=== PATIENT | female | born 1955 | race Caucasian/White ===

== ENCOUNTER 2024-03-25 14:48 | Outpatient (CLI) | payer MEDICARE, SELFPAY ==
--- NOTE | 2024-03-25 15:00 | US_ITS ---
Patient: TYRON BAUER Facility:?[facility] RIS Patient ID:?[id number] Site Patient ID:?[id number]. Site :?[id number] Study:?US-OB Pelvis TA/TV Pelvic US-03/25/2024 3:53:57 PM Ordering Physician:Viola Ortega Final Report: INDICATION: Post menopausal Bleeding COMPARISON: none TECHNIQUE: 2D batista scale and color Doppler images were acquired of the pelvis using a transabdominal and transvaginal approach. FINDINGS: Sonographic images demonstrate a normal size and smooth outer contour of the uterus. Uterus measures 5.0 cm in length by 2.4 cm in AP diameter by 3.8 cm in transverse dimension. The myometrium has a heterogeneous echotexture. The endometrial lining appears thickened and heterogeneous and measures 12 mm in composite thickness. The right ovary measures 1.2 x 0.6 x 0.5 cm in size and the left ovary measures 2.3 x 1.5 x 2.1 cm. The ovaries demonstrate normal arterial and venous blood flow on color Doppler analysis. There are no suspicious fluid collections within the cul-de-sac. Simple left ovarian cyst measures 17 x 16 x 19 millimeters. IMPRESSION: Thickened and heterogeneous endometrium measuring 12 millimeters. Dictated by Caden Mancilla MD @ 03/26/2024 10:00:11 AM Signed by:?Caden Mancilla MD @03/26/2024 10:00:11 AM (Electronic Signature)
== END 2024-03-25 14:49 | disposition home or self-care (01) ==
LOC: US 14:48
PROVIDERS: PCP Family Medicine; Visit Provider Obstetrics & Gynecology
DX: N95.0 Postmenopausal bleeding (principal); R93.89 Abnormal findings on diagnostic imaging of other specified body structures
CPT/HCPCS: 76830; 76856; 93976

== ENCOUNTER 2024-04-02 11:02 | Day surgery (SDC) | payer MEDICARE, SELFPAY ==
--- OUTSIDE RECORDS SUMMARY | 2024-04-02 11:06 | XMS_ITS | Clinical Summary ---
Author Name Unknown Organization [facility] [facility] Address [place], [place] [address] Care Team Providers Care Smoking Tobacco Cutter Operator Name Role Phone Jose Childs MD Primary Care Provider [phone] Mary Schrader MD Unavailable [phone] Laura Hernadez NP Unavailable Jeremiah Ordoñez Unavailable [phone] Allergies Active Allergy Reactions Criticality Noted Date Comments Lisinopril Cough 07/26/2021 Medications Medication Sig Dispensed Refills Start Date End Date Status fexofenadine (SHARMAINE) 180 mg tablet Take 180 mg by mouth once daily if needed for Allergy Symptoms. Do not crush or chew. 0 03/12/2023 Active zoledronic acid in mannitol & water (RECLAST) 5 mg/100 mL infusion Inject 5 mg (100 mL) intravenous one time for 1 dose. Every October 100 mL 03/12/2023 Active VITAMIN B COMPLEX ORAL Take by mouth. Active amLODIPine (NORVASC) 2.5 mg tabletIndications:H TN (hypertension) Take 1 Tablet (2.5 mg) by mouth once daily. 90 Tablet 3 02/07/2024 Active losartan (COZAAR) 100 mg tabletIndications:H igh cholesterol Take 1 Tablet (100 mg) by mouth once daily. 90 Tablet 3 02/07/2024 Active sertraline (ZOLOFT) 100 mg tabletIndications:D epression, major, in remission (HC) Take 0.5 Tablets (50 mg) by mouth every morning. 45 Tablet 3 02/07/2024 Active cholecalciferol (Vitamin D-3) 2,000 unit capsuleIndications: Vitamin D deficiency Take 1 Capsule (2,000 units) by mouth once daily. 90 Capsule 3 02/07/2024 Active Active Problems Problem Noted Date Diagnosed Date High cholesterol 03/12/2023 Vitamin D deficiency 03/12/2023 Depression, major, in remission 03/12/2023 Osteoporosis 03/12/2023 Primary cancer of right breast 03/12/2023 HTN (hypertension) 03/12/2023 Adjustment disorder with anxious mood 07/21/2021 Benign essential HTN 07/21/2021 Malignant neoplasm of upper- outer quadrant of right breast in female, estrogen receptor positive 07/21/2021 Hx of colonoscopy 04/13/2021 Overview: Normal 10/04/16, repeat 10 yrs - per pt, Dr Bedolla did not rec another cscope due to after effects Encounters Date Type Department Care Team Description 04/01/2024 10:00 AM CDT Preop Visit [facility] [address] [place] [address] Dashawn Tang MD Pre-Op Exam (DOS: 04/02/24, Dr. Miller, [facility], ) 04/01/2024 Travel 03/25/2024 Orders Only [facility] Scanner 1 scan: (1-Ord) [facility], OB PELVIS TA/TV, 03/25/2024 03/18/2024 Lab Requisition [facility] [phone] Viola Miller MD 03/12/2024 1:00 PM CDT Office Visit [facility] [address] [place] [phone] Mary Schrader MD Follow Up (Malignant neoplasm of right female breast, unspecified estrogen receptor status, unspecified site of breast (HC)//) 03/12/2024 Travel 03/09/2024 10:17 AM CDT - 03/09/2024 11:59 PM CDT Hospital Encounter [facility] [address] [facility] [place] [address] Laura Hernadez L, STRUCTURES MECHANIC Anemia, unspecified type 03/09/2024 9:52 AM CDT - 03/09/2024 10:16 AM CDT Hospital Encounter [facility] [address] [facility] [place] [address] Laura Hernadez L, STRUCTURES MECHANIC Malignant neoplasm of right female breast, unspecified estrogen receptor status, unspecified site of breast (HC) 03/09/2024 Travel 02/07/2024 9:30 AM CDT Office Visit [facility] [address] [place] [phone] Jose Childs MD Medicare ANNUAL (subsequent) Visit 02/07/2024 Travel from Last 3 Months Immunizations Name Administration Dates Next Due COVID-19 Vaccine Spikevax (M oderna 50mcg/0.5mL) 12YO+ [id number] Formula PF 09/25/2023 Hepatitis A (Adult) 02/21/2011, 1,08/04/2010,07/26 Influenza Virus, Unspecified 09/07/2022, 08/25/2021,09/03/2019,09/11,07/22/2013,07/11/2012,09/11/2010 ,08/31/2010,07/25/2009,07/13/2009,07/26,07/28/2008,09/03/2007, 6,08/28/2006,09/26/2005 Influenza, High-dose Quadriv alent Inactivated 08/17/2023 MMR 04/09/2014 Pneumococcal Conj 20-valent (Prevnar 20) 03/12/2023 Pneumococcal Poly,23-Valent (Pneumovax) 07/21/2021 RSV, Bivalent Vaccine Recons tituted (Abrysvo 120MCG/0.5mL) 09/17/2023 Tdap 05/25/2014,11/26/2012 Zoster (Shingrix-RZV, recombinant) 05/26/2020, Zoster, Unspecified Formulation 08/25/2019 Family History Medical History Relation Name Comments Cancer-colon Father Stroke Mother Cancer-breast Other niece Cancer-breast Sister 1 Cancer-breast Sister 2 Relation Name Status Comments Brother Father Mother Other Alive Sister 1 Alive Sister 2 Alive Social History Tobacco Use Types Packs/Day Years Used Date Smoking Tobacco: Former Cigarettes Q uit: 1977 Smokeless Tobacco: Never Tobacco Cessation:Counseling Given: Not Answered Alcohol Use Standard Drinks/Week Comments Yes 5 (1 standard drink = 0.6 oz pure alcohol) 5 drinks of wine a week since [facility]ci PHQ-2 Answer Date Recorded PHQ-2 TOTAL SCORE 0 02/07/2024 Social Connections Answer Date Recorded Frequency of Communication with Friends and Fami ly Not on file 03/12/2024 Financial Resource Strain Answer Date R ecorded Difficulty of Paying Living Expenses 3 03/12/2023 Difficulty of Paying Living Expenses Not on file 03/12/2023 Food Insecurity Answer Date Recorded Worried About Running Out of Food in the Last Ye ar 1 03/12/2023 Transportation Needs Answer Date Record ed Lack of Transportation (Medical) 1 03/12/2023 Sex and Gender Information Value Date Recorded Sex Assigned at Not on file Gender Identity Not on file Sexual Orientation Not on file Obstetrics History Last Filed Vital Signs Vital Sign Reading Time Taken Comments Blood Pressure 138/82 04/01/2024 10:07 AM CDT Pulse 72 04/01/2024 10:07 AM CDT Temperature 36.7 ??C (98 ??F) 04/01/2024 10:07 AM CDT Respiratory Rate 14 03/12/2024 12:52 PM CDT Oxygen Saturation 98% 03/12/2024 12:52 PM CDT Inhaled Oxygen Concentration - - Weight 71.2 kg (157 lb) 04/01/2024 10:07 AM CDT with shoes Height 165.1 cm (5' 5) 04/01/2024 10:07 AM CDT with shoes Body Mass Index 26.13 04/01/2024 10:07 AM CDT Plan of Treatment Upcoming Encounters Date Type Department Care Team (Late st Contact Info) Description 09/10/2024 1:30 PM CDT Appointment [facility] [address] [place] [address] 09/15/2024 1:45 PM CDT Office Visit [facility] [address] [place] [address] Laura Hernadez, STRUCTURES MECHANIC [address] [facility] [place] [address] Health Maintenance Due Date Last Done Comments DEXA/DXA scan for age 65+ 2022 COVID-19 vaccine series (2022- season) 2023 09/25/2023, 08/16/2022, 05/14/2022, Additional history exists Tetanus booster 05/25/2024 05/25/2014, 11/26/2012 Influenza for age 65+ 07/26/2024 08/17/2023 , 09/07/2022, 08/25/2021, Additional history exists Depression screening for age 12+ 02/06/2025 02/07/2024, 03/12/2023 Medicare Wellness for age 65+ 02/07/2025 02/07/2024 Mammogram for age 45-75 03/09/2025 03/09/2024, 04/17 BMI (ht and wt on same day) for age 18+ 04/01/2025 04/01/2024, 02/07/2024, 10/31/2023, Additional history exists Colonoscopy through age 75 02/01/2027 P ostponed from 2002 (Other) Lipids for age 45-75 02/06/2029 02/07/2024 Tdap Completed 05/25/2014, 11/26/2012 Zoster (shingles) series for age 50+ Completed 05/26/2020, 03/24/2020 Pneumococcal series for age 65+ Completed 03/12/2023, 07/21/2021 Hepatitis C screening for age 18-79 Completed 02/07/2024 Procedures Procedure Name Priority Date/Time Associated Diagnosis Comments POTASSIUM,ISTAT Routine 04/01/2024 11:10 AM CDT Pre-op exam HTN (hypertension) SCAN-ULTRASOUND REPORT 03/25/2024 12:00 AM CDT LAB TRACKING EVENT Routine 03/17/2024 3: 30 PM CDT PATH TISSUE EXAM Routine 03/17/2024 3:30 PM CDT CBC WITH AUTO DIFFERENTIAL Timed 03/09/2024 10:24 AM CDT Anemia, unspecified type VITAMIN B12 Today 03/09/2024 10:24 AM CDT Anemia, unspecified type CBC WITH AUTO DIFFERENTIAL Today 03/09/2024 10:24 AM CDT Anemia, unspecified type XR MAMMO SOLOMON BILAT SCREEN Routine 03/09/2024 10:11 AM CDT Malignant neoplasm of right female breast, unspecified estrogen receptor status, unspecified site of breast (HC) CBC WITH AUTO DIFFERENTIAL Routine 02/07/2024 10:12 AM CDT Primary cancer of right breast (HC) CBC WITH AUTO DIFFERENTIAL Routine 02/07/2024 10:12 AM CDT Primary cancer of right breast (HC) VITAMIN B12 Routine 02/07/2024 10:12 AM CDT B12 deficiency HEMOGLOBIN A1C SCREENING Routine 02/07/2024 10:12 AM CDT Elevated glucose COMP METABOLIC PANEL Routine 02/07/2024 10:12 AM CDT HTN (hypertension) ANTI HCV Routine 02/07/2024 10:12 AM CDT Need for hepatitis C screening test LIPID PANEL W REFLEX MEASURED LDL Routine 02/07/2024 10:12 AM CDT Screening for cardiovascular condition from Last 3 Months Results * POTASSIUM,ISTAT (04/01/2024 11:10 AM CDT) POTASSIUM, POCT 4.0 3.5 - 5.0 mmol/L 04/01/2024 11:14 AM CDT [facility] Blood BLOOD SPECIMEN / Unknown 04/01/2024 11:10 AM CDT 04/01/2024 11:14 AM CDT Dashawn Tang MD CHEMISTRY Performing Organization Address City/[facility]/ZIP Co de Phone Number [facility] [address] [place] [address] * SCAN-ULTRASOUND REPORT (03/25/2024 12:00 AM CDT) Anatomical Region Laterality Modality Other Scanner OTHER * LAB TRACKING EVENT (03/17/2024 3:30 PM CDT) Other (Other) Client Collect / Unknown 03/17/2024 3:30 PM CDT 03/18/2024 3:47 PM CDT Viola Miller MD LAB BILL ONLY Performing Organization Address [facility] Co de Phone Number [facility] [address] [place] [address] * PATH TISSUE EXAM (03/17/2024 3:30 PM CDT) Case Report Pathology Report ?Case: [id number] ? Authorizing Provider: ??Viola Miller MD ?? Collected: ? 03/17/2024 1530 ? Ordering Location: ? [facility] ?Received: ?03/18/2024 1621 ? Pathologist: ? Martha Mike MD ? Specimen: ?Endometrial Biopsy ? 03/20/2024 11:54 AM [facility] Final Diagnosis A) ENDOMETRIUM, BIOPSY: 1. Scant atrophic endometrium 2. Negative for hyperplasia, atypia, and malignancy in this sample 03/20/2024 11:54 AM [facility] Comment A) The specimen is scant. However, atrophic endometrium typically yields a scant specimen. If the clinical impression does not correlate with the histologic finding of endometrial atrophy, further endometrial tissue sampling is recommended as clinically indicated. 03/20/2024 11:54 AM [facility] Clinical Information Occasional dark brown discharge/post menopausal bleeding. Pelvic ultrasound pending. A history of stage Ia invasive ductal carcinoma of the right, ER/SC positive in 2020. Tamoxifen in 202203/20/2024 11:54 AM [facility] Gross Description A) Received in formalin, labeled with the patient's name and date of , is a 1.6 x 0.8 x 0.3 cm aggregate of cloudy mucus. ??The specimen is entirely submitted in 1 cassette. EKW 03/18/2024 03/20/2024 11:54 AM [facility] Microscopic Description The final diagnosis is based on microscopic examination of appropriate sections of all specimens. 03/20/2024 11:54 AM [facility] Additional Information Interpreted at [facility] [employer] [facility] Laboratory - [address], [place] [address] 03/20/2024 11:[address] [facility] Other (Endometrial Biopsy) 03/17/2024 3:30 PM CDT 03/18/2024 4:21 PM CDT Viola Miller MD PATHOLOGY/CYTOLOG Y [facility] [address] [place] [address], * CBC WITH AUTO DIFFERENTIAL (03/09/2024 10:24 AM CDT) Only the most recent of2 resultswithin the time period is included. WHITE BLOOD COUNT 5.2 4.5 - 11.0 thou/cu mm 03/09/2024 10:29 AM [facility] RED BLOOD COUNT 4.07 4.00 - 5.20 mil/cu mm 03/09/2024 10:29 AM [facility] HEMOGLOBIN 12.1 12.0 - 16.0 g/dL 03/09/2024 10:29 AM [facility] HEMATOCRIT 37.1 33.0 - 51.0 % 03/09/2024 10:29 AM [facility] MCV 91 80 - 100 fL 03/09/2024 10:29 AM [facility] MCH 29.7 26.0 - 34.0 pg 03/09/2024 10:29 AM [facility] MCHC 32.6 32.0 - 36.0 g/dL 03/09/2024 10:29 AM [facility] RDW 12.9 11.5 - 15.5 % 03/09/2024 10:29 AM [facility] PLATELET COUNT 248 140 - 440 thou/cu mm 03/09/2024 10:29 AM [facility] MPV 9.5 6.5 - 11.0 fL 03/09/2024 10:29 AM [facility] % NEUT 64.9 % 03/09/2024 10:29 AM [facility] % LYMPH 23.5 % 03/09/2024 10:29 AM [facility] % MONO 9.1 % 03/09/2024 10:29 AM [facility] % EOS 1.9 % 03/09/2024 10:29 AM CDT [facility] % BASO 0.6 % 03/09/2024 10:29 AM CDT [facility] ABSOLUTE NEUTROPHILS 3.3 1.7 - 7.0 thou/cu mm 03/09/2024 10:29 AM CDT [facility] ABSOLUTE LYMPHOCYTES 1.2 0.9 - 2.9 thou/cu mm 03/09/2024 10:29 AM CDT [facility] ABSOLUTE MONOCYTES 0.5 <0.9 thou/cu mm 03/09/2024 10:29 AM CDT [facility] ABSOLUTE EOSINOPHILS 0.1 <0.5 thou/cu mm 03/09/2024 10:29 AM CDT [facility] ABSOLUTE BASOPHILS 0.0 <0.3 thou/cu mm 03/09/2024 10:29 AM CDT [facility] Blood BLOOD SPECIMEN / Unknown Venipuncture / Unknown 03/09/2024 10:24 AM CDT 03/09/2024 10:24 AM CDT Narrative [facility] - 03/09/2024 10:29 AM CDT This procedure was originally ordered at [facility]. This procedure was originally ordered at [facility]. Laura Hernadez NP HEMATOLOGY [facility] [address] [place] [address] * VITAMIN B12 (03/09/2024 10:24 AM CDT) Only the most recent of2 resultswithin the time period is included. VITAMIN B12 259 232 - 1,245 pg/mL 03/09/2024 10:20 PM CDT [facility] Blood BLOOD SPECIMEN / Unknown Venipuncture / Unknown 03/09/2024 10:24 AM CDT 03/09/2024 10:24 AM CDT Narrative [facility] - 03/09/2024 10:20 PM CDT Biotin supplements may cause clinically significant interference for this test assay. ??If interference is suspected, it is strongly recommended that biotin is discontinued for at least one week prior to retesting. Laura Hernadez NP CHEMISTRY [facility] [address] [place] [address], [place] * XR MAMMO SOLOMON BILAT SCREEN (03/09/2024 10:11 AM CDT) Anatomical Region Laterality Modality BREASTS, Breast Left, Breast Right Bilateral Mammography Impressions 03/10/2024 10:39 AM CDT ??There is no radiographic evidence for malignancy. ??Recommend annual mammograms. MAMMOGRAM ASSESSMENT: ??ACR 2 Benign PATIENTS: You will also receive a letter with your examination results in an easy to read format. ??If you have questions about your results, please contact your referring provider. Narrative 03/10/2024 10:39 AM CDT For Patients: As a result of the Century Cures Act, medical imaging exams and procedure reports are released immediately into your electronic medical record. You may view this report before your referring provider. If you have questions, please contact your health care provider. XR MAMMO SOLOMON BILAT SCREEN [[id number]] CLINICAL HISTORY: ??This is an asymptomatic 69 y.o. patient. INDICATION FOR EXAM: Mammogram Screening. TECHNIQUE: CC & MLO views were obtained. ??This study was evaluated with the assistance of Computer-Aided Detection. Breast Tomosynthesis was used in interpretation. COMPARISON FILMS: Yes 04/16/23 ? FINDINGS: ??The breasts are heterogeneously dense, which may obscure small masses. ??No suspicious masses or microcalcifications. ??There are post treatment changes of right breast. Laura Hernadez NP MAMMO * HEMOGLOBIN A1C SCREENING (02/07/2024 10:12 AM CDT) HEMOGLOBIN A1C SCREENING 5.1 <=6.4 % 02/07/2024 11:06 AM CDT [facility] Blood BLOOD SPECIMEN / Unknown Venipuncture / Unknown 02/07/2024 10:12 AM CDT 02/07/2024 10:12 AM [facility] - 02/07/2024 11:06 AM CDT ? (<5.7%) ?Normal ? (5.7% to 6.4%) ? Indicates prediabetes ? (>=6.5%) ? Confirms diabetes Falsely low levels may be seen with: Recent Transfusion, Recent Significant Blood Loss, Hemolytic Diseases, or Falsely elevated levels may be seen with: Untreated Anemias, Splenectomy Jose Childs MD CHEMISTRY [facility] [address] [place] [address] * (ABNORMAL) LIPID PANEL W REFLEX MEASURED LDL [[id number]] (02/07/2024 10:12 AM CDT) CHOLESTEROL,TOTAL 237(H) 100 - 199 mg/dL 02/07/2024 11:32 AM [facility] Comment: Cholesterol, Total Reference Ranges Desirable <200 mg/dL Borderline 200-239 mg/dL High >=240 mg/dL TRIGLYCERIDES 117 <150 mg/dL 02/07/2024 11:32 AM [facility] HDL CHOLESTEROL 78 >40 mg/dL 11:32 AM [facility] NON-HDL CHOLESTEROL 159(H) <145 mg/dl 02/07/2024 11:32 AM [facility] CHOL/HDL RATIO 3.04 <4.50 02/07/2024 11:32 AM [facility] LDL CHOLESTEROL 136(H) <=130 mg/dL 02/07/2024 11:32 AM [facility] VLDL CHOLESTEROL 23 <=30 mg/dL 02/07/2024 11:32 AM [facility] PROVIDER ORDERED STATUS RANDOM 02/07/2024 11:32 AM [facility] Blood BLOOD SPECIMEN / Unknown Venipuncture / Unknown 02/07/2024 10:12 AM CDT 02/07/2024 10:12 AM CDT Jose Childs MD CHEMISTRY Performing Organization Address City/[facility]/ZIP Co de Phone Number [facility] [address] [place] [address] * ANTI HCV [[id number]] (02/07/2024 10:12 AM CDT) [facility] HEPATITIS C ANTIBODY Non-Reacti ve Non-React felicia 02/07/2024 9:28 PM CDT [facility] Comment:Please note, per www .CDC.gov: If a patient is known to be at high risk of HCV infection, or is symptomatic, and the physician's suspicion of HCV infection is high, HCV RNA testing is often employed and is of diagnostic value, even after an initial negative anti-HCV test result. Blood BLOOD SPECIMEN / Unknown Venipuncture / Unknown 02/07/2024 10:12 AM CDT 02/07/2024 10:12 AM CDT Jose Childs MD SEND OUTS Performing Organization Address City/[facility]/ZIP Co de Phone Number [facility] [address] [place] [address], * (ABNORMAL) COMP METABOLIC PANEL (02/07/2024 10:12 AM CDT) [facility] SODIUM 140 136 - 145 mmol/L 02/07/2024 11:32 AM CDT [facility] POTASSIUM 4.0 3.5 - 5.1 mmol/L 02/07/2024 11:32 AM T [facility] CHLORIDE 105 98 - 107 mmol/L 02/07/2024 11:32 AM T [facility] CO2,TOTAL 24 22 - 29 mmol/L 02/07/2024 11:32 AM T [facility] ANION GAP 11 5 - 18 02/07/2024 11:32 AM T [facility] GLUCOSE 76 70 - 99 mg/dL 02/07/2024 11:32 AM [facility] CALCIUM 9.3 8.8 - 10.2 mg/dL 02/07/2024 11:32 AM [facility] BUN 11 8 - 23 mg/dL 02/07/2024 11:32 AM [facility] CREATININE 0.54 0.50 - 0.90 mg/dL 02/07/2024 11:32 AM [facility] BUN/CREAT RATIO 20 10 - 20 11:32 AM [facility] eGFR >90 >90 mL/min/1.7 3m2 02/07/2024 11:32 AM [facility] Comment:As of 2022, eG FR is calculated by the CKD-EPI creatinine equation without race adjustment. ??eGFR can be influenced by muscle mass, exercise, and diet. ??The reported eGFR is an estimation only and is only applicable if the renal function is stable. ALBUMIN 4.4 4.0 - 4.9 g/dL 02/07/2024 11:32 AM [facility] PROTEIN,TOTAL 7.2 6.0 - 8.0 g/dL 02/07/2024 11:32 AM [facility] BILIRUBIN,TOTAL 0.3 0.0 - 1.2 mg/dL 02/07/2024 11:32 AM [facility] ALK PHOSPHATASE 69 35 - 104 IU/L 02/07/2024 11:32 AM [facility] ALT (SGPT) 6(L) 10 - 35 IU/L 02/07/2024 11:32 AM [facility] AST (SGOT) 23 10 - 35 IU/L 02/07/2024 11:32 AM [facility] Blood BLOOD SPECIMEN / Unknown Venipuncture / Unknown 02/07/2024 10:12 AM CDT 02/07/2024 10:12 AM T Jose Childs MD CHEMISTRY [facility] [address] [place] [address] from Last 3 Months Care Teams Smoking Tobacco Cutter Operator Relationship Specialty Start Date End Date Jose Childs MD [address] [place] [address] PCP - General Family Practice 06/24/23 Mary Schrader MD [address] [place] [address] Medical Oncologist Oncology 09/06/23 Laura Hernadez NP [address] [place] [address] Nurse Practitioner Oncology 09/06/23 Jeremiah Ordoñez LSW [address] [place], [place] [id number] [employer] Oncology 09/06/23
[2024-04-02 11:14] VITALS: BMI 26.0
[2024-04-02] MEDS: LACTATED RINGERS 1000 ML 1,000 ML 100 ML IV (11:20)
[2024-04-02] MEDS: SODIUM CHLORIDE 0.9 % (FLUSH) 10 ML SYRINGE IVF (11:20)
[2024-04-02 11:23] VITALS: BP 148/74; PULSE 57; RESP 16; TEMP 36.6; O2SAT 92
--- NOTE | 2024-04-02 11:35 | P.GYNPRC_ITS ---
Procedure Note Date of procedure: 04/02/24 Will [facility] bill your pro fee for this procedure?: Yes Pre-op diagnosis: postmenopausal bleeding with thickened endometrium on recent pelvic ultrasound Post-op diagnosis: Periclitoral adhesions / partial clitoral phimosis with keratin pearls beneath clitoral joy Small endometrial polyp Otherwise as above Procedure: Release of periclitoral adhesions Hysteroscopy, polypectomy, dilation and curettage with ultrasound guidance Anesthesia: MAC Complications: None Surgeon: Viola Miller MD Estimated blood loss (mL): 5 IV fluids (mL): 300 Urine Output (mL): 55 Pathology: specimen obtained, sent to pathology ( endometrial curettings) Condition: stable Disposition: same day Findings: 1. On vulvar exam, there was partial clitoral phimosis noted, with small keratin pearls noted on the surface of the glans. 2. Upon hysteroscopy, endocervical cavity was normal in appearance. Endometrial cavity was narrow and elongated, with no identifiable tubal ostia. Ultrasound was requested to confirm presents with in the fundal portion of the endometrial cavity, and images supported appropriate location within the endometrial cavity. Procedure Description: Procedure in detail: Patient was taken to the operating room with IV running. She was positioned in dorsal lithotomy position with her legs fully supported in Yellofin stirrups. Monitored anesthesia care was administered. She was prepped and draped in the usual sterile fashion. Exam under anesthesia was performed for the above-noted findings. Paracervical block was performed for total of 10 mL of 1% lidocaine. The clitoral joy was gently retracted, fully exposing the glans. The keratin pearls on the surface of the glans were removed with dampened sterile Q-tip. Speculum was inserted. Cervix visualized and grasped along the anterior lip with a single-tooth tenaculum. Cervix was serially dilated to accommodate the TRUCLEAR hysteroscope. This was assembled with saline inflow and outflow in place. The line was flushed of bubbles. The hysteroscope was advanced through the cervix into the endometrial cavity for the above noted findings. The tissue morcellator was then inserted through the operating channel. Window lock was performed. Under direct visualization, the endometrial cavity was circumferentially curetted with the tissue morcellator. With the endometrial cavity distended, ultrasound was performed, showing appropriate location for hysteroscope. The hysteroscope and morcellator were then removed from the uterus. Tenaculum was removed from the anterior lip of cervix. Hemostasis was achieved with silver nitrate. Postoperative debrief was carried out, and I verbally confirmed my desire to send endometrial curettings to pathology. Patient tolerated procedure well. She was taken to recovery area in stable condition.
--- NOTE | 2024-04-02 11:35 | W.PM.H&PU ---
History & Physical Update History & Physical Update H&P Reviewed and patient assessed: No changes noted
[2024-04-02] MEDS: LIDOCAINE 1% MDV 20 ML INJECTION (12:11)
[2024-04-02] MEDS: SILVER NITRATE APPLICATOR 1 EACH STICK..EA. TOPICAL (12:28)
[2024-04-02 12:40] VITALS: BP 143/71; PULSE 72; RESP 16; TEMP 36.5; O2SAT 98
--- NOTE | 2024-04-02 12:41 | W.ANESCHARGE ---
Anesthesia Charges Start Date/Time Anesthesia Start Date: 04/02/24 Anesthesia Start Time: 11:47 Stop Date/Time Anesthesia Stop Date: 04/02/24 Anesthesia Stop Time: 12:42
[2024-04-02 12:45] VITALS: BP 157/74; PULSE 61; RESP 16; O2SAT 100
[2024-04-02 13:00] VITALS: BP 177/101; PULSE 66; RESP 16; O2SAT 100
--- NOTE | 2024-04-02 13:03 | W.ANESCHARGE ---
Anesthesia Charges Start Date/Time Anesthesia Start Date: 04/02/24 Anesthesia Start Time: 11:47 Stop Date/Time Anesthesia Stop Date: 04/02/24 Anesthesia Stop Time: 12:42
[2024-04-02 13:15] VITALS: BP 158/102; PULSE 59; RESP 16; O2SAT 100
== END 2024-04-02 13:48 | disposition home or self-care (01) ==
PROVIDERS: PCP Family Medicine; Visit Provider Obstetrics & Gynecology
PROC: 0UDB8ZZ Extraction of Endometrium, Via Natural or Artificial Opening Endoscopic (ICD-10-PCS; CPT 58558; principal; 2024-04-02 12:45)
DX: N95.0 Postmenopausal bleeding (principal); R93.89 Abnormal findings on diagnostic imaging of other specified body structures; N90.89 Other specified noninflammatory disorders of vulva and perineum; N84.0 Polyp of corpus uteri
CPT/HCPCS: 56441; 58558; 00952; 36415; 76998; 86850; 86900; 86901; 88305; A9270; J1100; J1885; J2405; J2704; J3010; J7120